=== PATIENT | male | born 1975 | race Caucasian/White ===

== ENCOUNTER 2017-12-29 13:06 | Emergency (ER) | payer SELFPAY ==
[~2017-12-29] VITALS: Ht 165.1 cm; Wt 68.0 kg
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
--- NOTE | 2017-12-29 13:32 | NUR ---
shikha headhunter at bedside for eval.
--- NOTE | 2017-12-29 13:51 | NUR ---
slab grinder at bedside for blood draw.
[2017-12-29 14:11] LABS: CARBON DIOXIDE 26 mmol/L (21-32); CHLORIDE 101 mmol/L (98-107); GLUCOSE 86 mg/dL (74-106); POTASSIUM 2.9 mmol/L (3.5-5.1); SODIUM SERUM 136 mmol/L (136-145); UREA NITROGEN, BLOOD 10 mg/dL (7-18)
[2017-12-29 14:17] LABS: ALANINE AMINOTRANSFERASE 32 U/L (12-78); ALBUMIN 3.9 g/dL (3.4-5.0); ALCOHOL, BLOOD 266 mg/dL (0-0); ALKALINE PHOSPHATASE 145 U/L (46-116); ASPARTATE AMINOTRANSFERASE 35 U/L (15-37); BASOPHILS % (AUTO) 0.5 % (0.0-2.0); BILIRUBIN,DIRECT 0.2 mg/dL (0.0-0.2); BILIRUBIN,TOTAL 0.6 mg/dL (0.2-1.0); HEMATOCRIT 43 % (39-51); HEMOGLOBIN 14.5 g/dL (13.5-17.5); LYMPHOCYTES % (AUTO) 36.2 % (20.0-44.0); MEAN CORPUSCULAR HEMOGLOBIN 32 PG (26.0-33.0); MEAN CORPUSCULAR HGB CONC 34 g/dl (31.0-36.0); MEAN CORPUSCULAR VOLUME 95 fL (80-96); MONOCYTES # (AUTO) 0.4 /CMM (0.1-1.30); MONOCYTES % (AUTO) 7.8 % (2.0-12.0); NEUTROPHILS % (AUTO) 53.5 % (43.0-81.0); PLATELET COUNT (AUTO) 268 /CMM (150-450); RDW COEFFICIENT OF VARIATION 14.4 (11.5-15.0); RED BLOOD CELL COUNT(AUTO) 4.56 MIL/uL (4.5-6.0); TOTAL PROTEIN, SERUM 7.1 g/dL (6.4-8.2); WHITE BLOOD COUNT (AUTO) 5.6 K/uL (4.3-11.0)
[2017-12-29 14:21] LABS: ACETAMINOPHEN < 3 ug/ml (10-30); SALICYLATE < 2.0 mg/dL (2.8-20.0)
--- NOTE | 2017-12-29 15:30 | NUR ---
pt sleeping in bed. on monitor w/ stable vitals. will continue to monitor.
--- NOTE | 2017-12-29 17:35 | NUR ---
pt is sleeping. easily arousable. on monitor. vss. will continue to monitor.
--- NOTE | 2017-12-29 19:12 | NUR ---
Patient discharged to home in stable condition. Written and verbal after care instructions given. Patient verbalizes understanding of instruction.IV removed. Catheter intact and site benign. Pressure and 4x4 applied to site. No bleeding noted.
[2017-12-29 19:13] VITALS: BP 122/66
== END 2017-12-29 19:13 | disposition home or self-care (01) ==
LOC: ER 13:07
DX: F10.129 Alcohol abuse with intoxication, unspecified (principal); Y90.8 Blood alcohol level of 240 mg/100 ml or more
CPT/HCPCS: 36415; 80048; 80076; 80329; 85025; 99284; A4606; A6403; G0480 ×2; Z7610